=== PATIENT | female | born 1980 | race Caucasian/White ===

== ENCOUNTER 2017-03-31 17:15 | Emergency (ER) | payer BC ==
[2017-03-31 18:26] VITALS: BP 107/67
--- NOTE | 2017-03-31 18:33 | UC ---
Complaint Female HPI - HPI Summary HPI Summary: 37 female presents to with complaints of UTI symptoms associated with back pain and chills. States symptoms began last night and worsened today. Urinary frequency, dysuria, urgency and low right side of back pain. No other complaints. Denies fever, vomiting, nausea and abdominal pain. No vaginal discharge or bleeding. Denies genitalia symptoms and concern for STDs. Patient states she has had many UTIs in the past. No PMHx. - History Of Current Complaint Chief Complaint: UCGU Stated Complaint: URINARY COMPLAINT Time Seen by Provider: 03/31/17 18:21 Hx Obtained From: Patient Hx Last Menstrual Period: 03/24/17 ?: No - abstinence since LMP Onset/Duration: Sudden Onset, Lasting Days - 1, Still Present, Worse Since Timing: Constant Severity Initially: Moderate Severity Currently: Moderate Pain Intensity: 5 Pain Scale Used: 0-10 Numeric Character: Sharp Aggravating Factor(s): Urination Alleviating Factor(s): Nothing Associated Signs And Symptoms: Positive: Back Pain - right. Negative: Fever, Vaginal Bleeding/Discharge, Vaginal Discharge, Nausea, Vomiting(# Of Episodes =) - Allergies/Home Medications Allergies/Adverse Reactions: Allergies Allergy/AdvReac Type Severity Reaction Status Date / Time Ciprofloxacin [From Cipro] Allergy Hives Verified 03/31/17 18:27 Sulfamethoxazole Allergy Nausea And Verified 03/31/17 18:27 w/Trimethoprim Vomiting [From Bactrim] PMH/Surg Hx/FS Hx/Imm Hx - Additional Past Medical History Additional PMH: Denies DM and HTN. - Surgical History Surgical History: None - Family History Known Family History: Positive: Other - env allergies Negative: Cardiac Disease, Hypertension, Diabetes - Social History Alcohol Use: None Substance Use Type: None Smoking Status (MU): Never Smoked Tobacco - Immunization History Vaccination Up to Date: Yes Review of Systems Constitutional: Chills ENT: Sore Throat Respiratory: Negative Cardiovascular: Negative Gastrointestinal: Negative Genitourinary: Dysuria, Hematuria, Frequency, Urgency, Other - right low back/ flank pain All Other Systems Reviewed And Are Negative: Yes Physical Exam Triage Information Reviewed: Yes Appearance: Well-Appearing, No Pain Distress, Well-Nourished Vital Signs: Initial Vital Signs Temp 99.5 F 03/31/17 18:22 Pulse 80 03/31/17 18:22 Resp 16 03/31/17 18:22 BP 107/67 03/31/17 18:22 Pulse Ox 100 03/31/17 18:22 Vital Signs Reviewed: Yes Eyes: Positive: Conjunctiva Clear ENT: Positive: Hearing grossly normal, Pharynx normal Neck: Positive: Supple, Nontender Respiratory: Positive: Chest non-tender, Lungs clear, Normal breath sounds, No respiratory distress, No accessory muscle use Cardiovascular: Positive: RRR, No Murmur, Pulses Normal, Brisk Capillary Refill Abdomen Description: Positive: Nontender, No Organomegaly, Soft, CVA Tenderness (R), Other: - deferred pelvic exam and STD testing. Negative: Bruit, CVA Tenderness (L), Distended, Guarding, McBurney's Point Tenderness, Peritoneal Signs Bowel Sounds: Positive: Present Musculoskeletal: Positive: Strength Intact Skin Exam: Normal Complaint Female Dx - Course Course Of Treatment: urinalysis obtained. positive for UTI. low grade fever, R CVA tenderness and complaint of symptoms concern for pyelonephritis however patient denies any nausea, vomiting and fever. educated that infection can progress quickly. however does not appear to need IV antibiotics or further work up at this time, patient is competent and compliant to going straight to ER if any worsening signs/symptoms. Given rocephin, augmentin, ibuprofen and pyridium while in UC. continue at home. increase fluid intake and cranberry juice. given diflucan in case of yeast infection due to anitbiotics which are frequent for patient. continue ibuprofen for fever and discomfort. no other concerns at this time. follow up pcp. deferred pelvic exam and STD testing. - Differential Dx/Diagnosis Differential Diagnosis/HQI/PQRI: Ovarian Cyst, Sexually Transmitted Disease, Ureteral Stone, Urinary Tract Infection, Other - pyelonephritis Provider Diagnoses: UTI, uncomplicated pyelonephritis - Physician Notifications Discussed Patient Care With: Dr Bah Discharge - Discharge Plan Condition: Critical Disposition: HOME Prescriptions: Amoxicillin/Clavulanate TAB* [Augmentin TAB 500 mg*] 500 mg PO BID #19 tab Fluconazole 150 MG (NF) [Diflucan 150 mg (NF)] 150 mg PO ONCE #2 tab Phenazopyridine 200 mg (NF) [Pyridium 200 MG tab *] 200 mg PO TID #5 tab Patient Education Materials: Urinary Tract Infection in Women (ED), Kidney Infection (ED) Referrals: Gallerani,Fernanda M, PA [Primary Care Provider] - Additional Instructions: Take prescribed medication as directed, starting tomorrow as you already had tonights dose. Cranberry juice, increase fluid intake. Ibuprofen/tylenol for fever and pain. Any new or worsening symptoms as we discussed (fever, vomiting, worsening pain/ symptoms) please seek medical attention and go straight to ER. Follow up with PCP to ensure symptoms improved. You will hear about culture results if meds need to be changed, once received.
[2017-03-31] MEDS ORDERED: cefTRIAXone VIAL(*) 1,000 MG VIAL IM ONE (18:49)
[2017-03-31] MEDS ORDERED: Phenazopyridine TAB* 100 MG PO ONE (18:51)
[2017-03-31] MEDS ORDERED: Amoxicillin/Clavulanate TAB* 500 MG PO ONE (18:51)
[2017-03-31] MEDS ORDERED: Lidocaine 1% MPF* 2 ML VIAL INJ ONE (18:56)
[2017-03-31] MEDS ORDERED: Ibuprofen TAB* 600 MG PO ONE (18:56)
[2017-03-31] MEDS ORDERED: Amoxicillin/Clavulanate TAB* 875 MG PO ONE (19:01)
== END 2017-03-31 19:33 | disposition home or self-care (01) ==
LOC: UCCORT 17:15
DX: N39.0 Urinary tract infection, site not specified (principal); N12 Tubulo-interstitial nephritis, not specified as acute or chronic
CPT/HCPCS: 81003; 87077; 87086; 87186; 96372; 99213; A9270-GY; G0463; J0696

== ENCOUNTER 2018-01-17 18:23 | Emergency (ER) | payer BC ==
[2018-01-17 18:47] VITALS: BP 113/62
--- NOTE | 2018-01-17 19:15 | UC ---
Ear Complaint HPI - HPI Summary HPI Summary: c/o recurrent Left ear pain , this time around for the past 4 days. Denies fever or drainage. History of allergic rhinitis with perennial nasal congestion which is partially responsive to antihistamines. She has not used nasal sprays. - History of Current Complaint Chief Complaint: UCEar Stated Complaint: L EAR COMPLAINT Time Seen by Provider: 01/17/18 19:08 Hx Obtained From: Patient Hx Last Menstrual Period: 01/13/18 Onset/Duration: Gradual Onset, Lasting Days Severity Initially: Moderate Severity Currently: Moderate Pain Intensity: 5 Related History: Seasonal Allergies - Allergies/Home Medications Allergies/Adverse Reactions: Allergies Allergy/AdvReac Type Severity Reaction Status Date / Time ciprofloxacin Allergy Hives Verified 01/17/18 18:47 sulfamethoxazole Allergy Nausea And Verified 01/17/18 18:47 [From Bactrim] Vomiting trimethoprim [From Bactrim] Allergy Nausea And Verified 01/17/18 18:47 Vomiting Home Medications: Home Medications Ibuprofen TAB* [Advil TAB*] 600 mg PO Q6H PRN 01/17/18 [History Confirmed ] PMH/Surg Hx/FS Hx/Imm Hx Psychological History: Depression - Surgical History Surgical History: None - Family History Known Family History: Positive: Hypertension, Other - env allergies Negative: Cardiac Disease, Diabetes - Social History Alcohol Use: None Substance Use Type: None Smoking Status (MU): Never Smoked Tobacco - Immunization History Vaccination Up to Date: Yes Review of Systems ENT: Ear Ache All Other Systems Reviewed And Are Negative: Yes Physical Exam Triage Information Reviewed: Yes Appearance: Well-Appearing, No Pain Distress, Well-Nourished Vital Signs: Initial Vital Signs Temp 98.3 F 01/17/18 18:43 Pulse 83 01/17/18 18:43 Resp 17 01/17/18 18:43 BP 113/62 01/17/18 18:43 Pulse Ox 100 01/17/18 18:43 Vital Signs Reviewed: Yes Eyes: Positive: Conjunctiva Clear ENT: Positive: Hearing grossly normal, Pharynx normal, Uvula midline, Other - opacity of left TM without erythema or bulging Neck: Positive: Supple, Nontender, No Lymphadenopathy Respiratory: Positive: Chest non-tender, Lungs clear, Normal breath sounds Cardiovascular: Positive: RRR, No Murmur, Pulses Normal, Brisk Capillary Refill Abdomen Description: Positive: Nontender Ear Complaint Course/Dx - Course Course Of Treatment: history of allergic rhinitis, no acute changes in left TM , to start nasacort and monterlukast as prescribed, follow up with PCP in 2 weeks. - Differential Dx/Diagnosis Provider Diagnoses: serous otitis media. allergic rhinitis Discharge - Sign-Out/Discharge Documenting (check all that apply): Patient Departure All imaging exams completed and their final reports reviewed: No Studies - Discharge Plan Condition: Stable Disposition: HOME Prescriptions: Montelukast Sodium TAB* [Singulair TAB*] 10 mg PO BEDTIME #30 tab Triamcinolone NASAL SPRAY* [Nasacort AQ Nasal [place]*] 1 spray .SEE ORDER BID #1 nasal.spr Patient Education Materials: Triamcinolone (Into the nose), Montelukast (By mouth), Allergic Rhinitis (ED), Serous Otitis Media (ED) Referrals: Fernanda Villalobos PA [Primary Care Provider] - - Billing Disposition and Condition Condition: STABLE Disposition: Home
== END 2018-01-17 19:27 | disposition home or self-care (01) ==
LOC: UCCORT 18:23
CPT/HCPCS: 99212; G0463

== ENCOUNTER 2018-07-07 16:36 | Emergency (ER) | payer BC ==
[2018-07-07 18:25] VITALS: BP 123/64
--- NOTE | 2018-07-07 18:34 | UC ---
Throat Pain/Nasal Ge[place]any HPI - HPI Summary HPI Summary: 38-year-old woman comes in with a chief complaint of 2 weeks of upper respiratory tract infection symptoms. Been having a runny nose. She has sinus pressure and ear pressure which is worse on the left than the right. She does get recurrent ear infections. When she lays down she has postnasal drip and she is getting some chest congestion. No wheezing. [id number] medications help some with the symptoms. No recent fevers. - History of Current Complaint Chief Complaint: UCGeneralIllness Stated Complaint: COUGH,CONGESTION Time Seen by Provider: 07/07/18 18:17 Hx Last Menstrual Period: 06/21/18 Pain Intensity: 0 - Allergies/Home Medications Allergies/Adverse Reactions: Allergies Allergy/AdvReac Type Severity Reaction Status Date / Time ciprofloxacin Allergy Hives Verified 07/07/18 18:25 sulfamethoxazole Allergy Nausea And Verified 07/07/18 18:25 [From Bactrim] Vomiting trimethoprim [From Bactrim] Allergy Nausea And Verified 07/07/18 18:25 Vomiting PMH/Surg Hx/FS Hx/Imm Hx Previously Healthy: Yes - RECURRENT OM - Surgical History Surgical History: None - Family History Known Family History: Positive: Hypertension, Other - env allergies Negative: Cardiac Disease, Diabetes - Social History Alcohol Use: None Substance Use Type: None Smoking Status (MU): Never Smoked Tobacco - Immunization History Vaccination Up to Date: Yes Review of Systems All Other Systems Reviewed And Are Negative: Yes Constitutional: Positive: Negative Skin: Positive: Negative Eyes: Positive: Negative ENT: Positive: Sore Throat, Ear Ache, Nasal Discharge, Sinus Congestion, Sinus Pain/Tenderness Respiratory: Positive: Cough Cardiovascular: Positive: Negative Gastrointestinal: Positive: Negative Motor: Positive: Negative Neurovascular: Positive: Negative Musculoskeletal: Positive: Negative Neurological: Positive: Negative Psychological: Positive: Negative Is Patient Immunocompromised?: No Physical Exam Triage Information Reviewed: Yes Appearance: Well-Appearing, No Pain Distress, Well-Nourished Vital Signs: Initial Vital Signs Temp 98.9 F 07/07/18 18:20 Pulse 80 07/07/18 18:20 Resp 16 07/07/18 18:20 BP 123/64 07/07/18 18:20 Pulse Ox 100 07/07/18 18:20 Vital Signs Reviewed: Yes Eye Exam: Normal Eyes: Positive: Conjunctiva Clear ENT: Positive: Pharyngeal erythema, Nasal congestion, Nasal drainage, TM bulging - LEFT Neck exam: Normal Neck: Positive: Supple Respiratory: Positive: Lungs clear, Normal breath sounds, No respiratory distress Cardiovascular: Positive: RRR Musculoskeletal Exam: Normal Musculoskeletal: Positive: Strength Intact, ROM Intact Neurological Exam: Normal Neurological: Positive: Alert, Muscle Tone Normal Psychological Exam: Normal Psychological: Positive: Normal Response To Family, Age Appropriate Behavior Skin Exam: Normal Throat Pain/Nasal Course/Dx - Differential Dx/Diagnosis Provider Diagnosis: Sinusitis, Left serous otitis media Discharge - Sign-Out/Discharge Documenting (check all that apply): Patient Departure All imaging exams completed and their final reports reviewed: No Studies - Discharge Plan Condition: Stable Disposition: HOME Prescriptions: Amoxicillin/Clavulanate TAB* [Augmentin TAB 875*] 875 mg PO BID #20 tab Fluconazole 150 MG TAB* [Diflucan 150 MG TAB*] 150 mg PO ONCE #2 tablet Patient Education Materials: Sinusitis (ED), Serous Otitis Media (ED) Referrals: [facility] [place], [place] [facility] [Outside] Additional Instructions: FOLLOW UP WITH YOUR DOCTOR IF NOT COMPLETELY IMPROVED. GET RECHECKED FOR ANY WORSENING OF YOUR CONDITION OR QUESTIONS OR CONCERNS. - Billing Disposition and Condition Condition: STABLE Disposition: Home
== END 2018-07-07 18:38 | disposition home or self-care (01) ==
LOC: UCCORT 16:36
DX: J32.9 Chronic sinusitis, unspecified (principal); H65.92 Unspecified nonsuppurative otitis media, left ear; Z88.1 Allergy status to other antibiotic agents; Z88.2 Allergy status to sulfonamides
CPT/HCPCS: 99212; G0463

== ENCOUNTER 2018-07-13 20:48 | Emergency (ER) | payer BC ==
[2018-07-13 21:17] VITALS: BP 133/55
[2018-07-13] MEDS ORDERED: Azithromycin TAB* 250 MG PO ONE (21:36)
[2018-07-13] MEDS ORDERED: Benzonatate CAP* 100 MG PO ONE (21:37)
[2018-07-13] MEDS ORDERED: Albuterol HFA INHALER* 8 gm MDI INH ONE (21:39)
--- NOTE | 2018-07-13 21:39 | UC ---
Respiratory Complaint HPI - HPI Summary HPI Summary: 38-year-old woman comes in with a chief complaint of chest congestion and cough. Patient's been sick for about 2-1/2 weeks. Started with upper respiratory tract infection symptoms and sinusitis symptoms. Started Augmentin 6 days ago. The sinus congestion has improved however she's been having intermittent nosebleeds. She had been using Afrin and then she switched over Flonase. She feels like the infection is not going diameter chest and she's having some chest congestion and a dry cough and feeling short of breath. - History of Current Complaint Chief Complaint: UCRespiratory Stated Complaint: SINUS CONCERN Time Seen by Provider: 07/13/18 21:19 Hx Last Menstrual Period: 06/21/18 Pain Intensity: 0 - Allergies/Home Medications Allergies/Adverse Reactions: Allergies Allergy/AdvReac Type Severity Reaction Status Date / Time ciprofloxacin Allergy Hives Verified 07/13/18 21:18 sulfamethoxazole AdvReac Nausea And Verified 07/13/18 21:18 [From Bactrim] Vomiting trimethoprim [From Bactrim] AdvReac Nausea And Verified 07/13/18 21:18 Vomiting PMH/Surg Hx/FS Hx/Imm Hx Previously Healthy: Yes - Surgical History Surgical History: None - Family History Known Family History: Positive: Hypertension, Other - env allergies Negative: Cardiac Disease, Diabetes - Social History Alcohol Use: None Substance Use Type: None Smoking Status (MU): Never Smoked Tobacco - Immunization History Vaccination Up to Date: Yes Review of Systems All Other Systems Reviewed And Are Negative: Yes Constitutional: Positive: Negative Skin: Positive: Negative Eyes: Positive: Negative ENT: Positive: Nasal Discharge, Sinus Congestion, Other - INTERMITENT NOSE BLEEDS Respiratory: Positive: Shortness Of Breath, Cough Cardiovascular: Positive: Negative Gastrointestinal: Positive: Negative Motor: Positive: Negative Neurovascular: Positive: Negative Musculoskeletal: Positive: Negative Neurological: Positive: Negative Psychological: Positive: Negative Is Patient Immunocompromised?: No Physical Exam Triage Information Reviewed: Yes Appearance: No Pain Distress, Well-Nourished, Ill-Appearing - MILD Vital Signs: Initial Vital Signs Temp 98.4 F 07/13/18 21:12 Pulse 88 07/13/18 21:12 Resp 14 07/13/18 21:12 BP 133/55 07/13/18 21:12 Pulse Ox 100 07/13/18 21:12 Vital Signs Reviewed: Yes Eye Exam: Normal Eyes: Positive: Conjunctiva Clear ENT: Positive: Pharynx normal, TMs normal, Other - SMALL AMOUNT OF BLOOD RT NASAL SEPTUM. NO ACTIVE BLEEDING. Neck exam: Normal Neck: Positive: Supple Respiratory: Positive: Lungs clear, Normal breath sounds, No respiratory distress Cardiovascular: Positive: RRR Musculoskeletal Exam: Normal Musculoskeletal: Positive: Strength Intact, ROM Intact Neurological Exam: Normal Neurological: Positive: Alert, Muscle Tone Normal Psychological Exam: Normal Psychological: Positive: Normal Response To Family, Age Appropriate Behavior Skin Exam: Normal Respiratory Course/Dx - Course Course Of Treatment: With the congestion going into the chest concern of bronchitis going into pneumonia as a possibility. Therefore added azithromycin. Also use albuterol to see if that helps with the breathing. Also prescribed Tessalon Perles for cough. She can also use [id number] medications as needed if helpful. Follow-up primary care doctor reevaluate sooner if worse or any other questions or concerns. We did discuss stop the Flonase since switching over saline nasal spray for the nose. Also demonstrated how to pinch the nose for nosebleeds. - Differential Dx/Diagnosis Provider Diagnosis: Sinusitis, Bronchitis with bronchospasm Discharge - Sign-Out/Discharge Documenting (check all that apply): Patient Departure All imaging exams completed and their final reports reviewed: No Studies - Discharge Plan Condition: Stable Disposition: HOME Prescriptions: Azithromycin 250 mg PO DAILY #4 tablet Benzonatate CAP* [Tessalon 100 MG CAP*] 100 mg PO TID PRN #20 cap PRN Reason: Cough Patient Education Materials: Sinusitis (ED), Acute Bronchitis (ED), Bronchospasm (ED) Referrals: [facility] [place] [facility] [Outside] Additional Instructions: FOLLOW UP WITH YOUR DOCTOR IF NOT COMPLETELY IMPROVED. GET RECHECKED FOR ANY WORSENING OF YOUR CONDITION OR QUESTIONS OR CONCERNS. - Billing Disposition and Condition Condition: STABLE Disposition: Home
== END 2018-07-13 22:03 | disposition home or self-care (01) ==
LOC: UCCORT 20:48
DX: J32.9 Chronic sinusitis, unspecified (principal); J40 Bronchitis, not specified as acute or chronic; J98.01 Acute bronchospasm; Z88.1 Allergy status to other antibiotic agents; Z88.2 Allergy status to sulfonamides
CPT/HCPCS: 99213; A9270-GY; G0463